=== PATIENT | male | born 1965 | race American Indian/Alaskan Native ===

== ENCOUNTER 2016-11-04 21:51 | Emergency (ER) | payer MEDICAID ==
[2016-11-04 22:34] VITALS: BP 120/75; PULSE 67; RESP 20; TEMP 97.8; O2SAT 98
--- NOTE | 2016-11-05 00:21 | C.PDOC ---
History Of Present Illness 51 year old male presents to the ED for evaluation of a foreign body sensation in his throat which began around 1 hour [employer]. Patent states he had a coughing episode which he describes as "feeling like something stuck in throat." Patient reports that at the time, "it made it difficult to breathe." Patient reports he currently feels normal in the ED. He denies fever, chills, sore thoat, vomiting , and drooling. Time Seen by Provider: 11/04/16 22:41 Chief Complaint (Nursing): ENT Problem History Per: Patient History/Exam Limitations: no limitations Onset/Duration Of Symptoms: Hrs (1) Current Symptoms Are (Timing): Still Present Additional History Per: Patient Past Medical History Reviewed: Historical Data, Nursing Documentation, Vital Signs Vital Signs: Last Vital Signs Temp 97.8 F 11/04/16 22:29 Pulse 67 11/04/16 22:29 Resp 20 11/04/16 22:29 BP 120/75 11/04/16 22:29 Pulse Ox 98 11/05/16 01:47 - Medical History PMH: No Chronic Diseases Surgical History: No Surg Hx Family History: States: Unknown Family Hx - Social History Hx Alcohol Use: No Hx Substance Use: No Review Of Systems Constitutional: Negative for: Fever, Chills ENT: Positive for: Other (foreign body sensation in throat ). Negative for: Throat Pain Gastrointestinal: Negative for: Vomiting Physical Exam - Physical Exam Appears: Non-toxic, No Acute Distress Skin: Normal Color, Warm, Dry, No Rash Head: Atraumatic, Normacephalic Eye(s): bilateral: Normal Inspection Ear(s): Bilateral: Normal Oral Mucosa: Moist Throat: Normal, No Erythema, No Exudate Neck: Normal ROM, Supple Lymphatic: No Adenopathy Cardiovascular: Rhythm Regular, No Friction Rub, No Murmur Respiratory: Normal Breath Sounds, No Rales, No Rhonchi, No Stridor, No Wheezing Extremity: Normal ROM, Capillary Refill (less than 2 seconds ) Neurological/Psych: Oriented x3, Normal Speech, Normal Cognition, Normal Motor, Normal Sensation Gait: Steady ED Course And Treatment O2 Sat by Pulse Oximetry: 98 (on RA) Pulse Ox Interpretation: Normal Progress Note: Neck Soft Tissue XR ordered. Results are unremarkable. On reassessment, patient is resting comfortably, showing no signs of repiratory distress, is speaking in complete sentences, and is stable for discharge. Patient is advised to follow up with his PMD within 1-2 days for further evaluation and/or return to the ED if symptoms return or worsen. Reassessment Condition: Improved Disposition - Disposition Referrals: Mason Kearns MD [Medical Doctor] - Hakeem Telles MD [Medical Doctor] - Disposition: HOME/ ROUTINE Disposition Time: 00:18 Condition: GOOD Additional Instructions: Follow up with the medical doctor tomorrow without fail. Return if worsened. Instructions: Uvulitis (ED) Forms: [employer] (Bulgarian) - Clinical Impression Clinical Impression: Swollen tonsil - PA / [employer] / Resident Statement MD/DO has reviewed & agrees with the documentation as recorded. - Scribe Statement The provider has reviewed the documentation as recorded by the Scribe (Fabiola Cali) All medical record entries made by the Scribe were at my direction and personally dictated by me. I have reviewed the chart and agree that the record accurately reflects my personal performance of the history, physical exam, medical decision making, and the department course for this patient. I have also personally directed, reviewed, and agree with the discharge instructions and disposition.
--- NOTE | 2016-11-05 09:26 | RAD ---
PROCEDURE: Radiographs of the neck (soft tissue). HISTORY: throat pain, COMPARISON: None. TECHNIQUE: Frontal and Lateral Radiographs of the neck, optimized for soft tissue visualization. FINDINGS: SOFT TISSUES: No evidence of focal thickening or radiographic evidence of mass lesion. No radiopaque foreign body seen. CERVICAL SPINE: Mild degenerative changes. OTHER FINDINGS: None. IMPRESSION: No radiographic evidence of acute pathology in the soft tissue of the neck. If clinically warranted further assessment by other modality may be obtained.
== END 2016-11-05 00:23 | disposition home or self-care (01) ==
LOC: C.ER 21:51
DX: J35.8 Other chronic diseases of tonsils and adenoids (principal)